=== PATIENT | male | born 1960 | race Caucasian/White ===

== ENCOUNTER 2025-02-18 12:37 | Day surgery (SDC) | payer OTHER ==
[~2025-02-18] VITALS: Ht 177.8 cm; Wt 97.9 kg
[~2025-02-18 12:37] MED LIST: Balanced Salt Epinephrine Irrigation Solution 500 mL IR SCH; Diazepam 10 MG Tab ONE; Diazepam 5 MG Tab PO PRN; Diazepam 5 MG Tab PO SCH; Lidocaine HCl/Pf 1% 5 ML VIAL XX SCH; Moxifloxacin HCL 0.5 MG/0.1 ML 0.4MLSYR LEFTEYE SCH; NS 0 ML IV ONE; Ondansetron 4 MG SoluTab MM PRN; PHENYLEPHRINE\\TROPICAMIDE\\TETRACAINE OPHTHALMIC DILATING SOLN LEFTEYE PRN; Povidone-Iodine 450 DROP/30 ML Solution LEFTEYE SCH; Povidone-Iodine 450 DROP/30 ML Solution ONE; Tetracaine HCl/Pf 0.5% Opth Soln 4 ml ONE
--- NOTE | 2025-02-18 12:56 | NUR ---
02/18/25 [id number] Faiza Childs 1255: 10 MG PO VALIUM PER ORDERS. PT REPORTS ANXIETY 10/18.
--- NOTE | 2025-02-18 13:19 | NUR ---
02/18/25 1319 Gisselle Garcia 1315 BP 167/95, HR 72, O2 AT 98%, RESP 16
[2025-02-18 13:30] VITALS: BP 153/91
--- NOTE | 2025-02-18 13:30 | NUR ---
02/18/[address] AT BEDSIDE
== END 2025-02-18 13:48 | disposition home or self-care (01) ==
LOC: ORSCSDS 12:37
PROVIDERS: Student in an Organized Health Care Education/Training Program
PROC: 08RK3JZ Replacement of Left Lens with Synthetic Substitute, Percutaneous Approach (ICD-10-PCS; principal; 2025-02-18 14:00)
DX: H25.813 Combined forms of age-related cataract, bilateral (principal); H04.123 Dry eye syndrome of bilateral lacrimal glands; F17.210 Nicotine dependence, cigarettes, uncomplicated; I10 Essential (primary) hypertension; H35.3191 Nonexudative age-related macular degeneration, unspecified eye, early dry stage; H35.319 Nonexudative age-related macular degeneration, unspecified eye
CPT/HCPCS: A9270; J7040; V2632